=== PATIENT | male | born 1960 | race Caucasian/White ===

== ENCOUNTER → 2016-08-12 | Outpatient (CLI) | payer OTHER ==
[~2016-08-12] MED LIST: ASPI81TA28 PO; ATOR-24 PO; CHOL2000 PO; CLC/300 PO; CYAN500T13 PO; GLC500 PO; LEVO75TA PO; METF-384 PO; PIOG1TAB20 PO
[2016-08-13 07:11] LABS: ESTIMATED AVERAGE GLUCOSE 131 mg/dl; HA1C FLAG Normal (Normal)
== END | disposition home or self-care (01) ==
LOC: C.LAB1850 12:49
PROVIDERS: ATTEND Internal Medicine Endocrinology, Diabetes & Metabolism
DX: E03.9 Hypothyroidism, unspecified (principal); E11.9 Type 2 diabetes mellitus without complications

== ENCOUNTER 2016-09-14 22:36 | Inpatient (IN) | payer OTHER ==
[~2016-09-14] VITALS: Ht 172.7 cm; Wt 73.5 kg
[~2016-09-14 22:36] MED LIST changes: -ASPI81TA28 PO; -CHOL2000 PO; -CLC/300 PO; -CYAN500T13 PO; -GLC500 PO; -PIOG1TAB20 PO
[2016-09-14] MEDS ORDERED: SODIUM CHLORIDE 0.9% 1000ML 2,000 ML IV STA (22:57)
[2016-09-14] MEDS ORDERED: ACETAMINOPHEN 500 MG TAB PO STA (23:01)
--- NOTE | 2016-09-14 23:03 | EMERGENCY ROOM VISIT NOTE ---
History Report prepared by Aaron: Glenda Acosta Under the Supervision of: Dr. Yusef Oropeza M.D. First contact with patient: 22:46 Chief Complaint: SKIN PROBLEM Stated Complaint: SKIN INFECTION,BLISTERS/RASH ON LEFT SIDE History of Present Illness The patient is a 56 year old male who presents to the Emergency Room with complaints of a rash on the left side of his chest that began 4 nights ago. The patient reports that he was outside 4 nights ago trimming hedges, and before he went to bed he noticed a red dot that looked like an insect bite. The following morning he noticed that the bite was still there. He went for a 10 mile bike ride, and afterwards checked his blood pressure, which he states was low. Starting two days ago, the bite began to swell. The patient reports that he has also been light headed, febrile, and tachycardic. He reports that the rash continually spread on the left side of his body. The patient reports that he was placed on Doxycycline yesterday. He denies having a headache. Source of History: patient Onset: 4 nights ago Position: chest (left) Quality: other (rash) Associated Symptoms: + fevers, No headache Note: additional symptoms: light-headed and tachycardic Review of Systems See HPI for pertinent positives & negatives. A total of 10 systems reviewed and were otherwise negative. Past Medical & Surgical Medical Problems: (1) Cellulitis of left abdominal wall (2) Diabetes (3) SIRS (systemic inflammatory response syndrome) Family History Diabetes mellitus FHx: cancer FHx: heart disease Social History Smoking Status: Never Smoker Alcohol Use: occasionally Marital Status: Current/Historical Medications Scheduled Aspirin (Aspirin Ec), 81 MG PO DAILY Atorvastatin (Lipitor), 40 MG PO DAILY Cholecalciferol (Vitamin D3), 1 CAP PO DAILY Cyanocobalamin (Vitamin B12 500MCG), 500 MCG PO DAILY Levothyroxine Sodium (Synthroid), 75 MCG PO DAILY Metformin HCl (Metformin HCl), 2,000 MG PO DAILY Pioglitazone Hcl (Pioglitazone Hcl), 45 MG PO DAILY Allergies Coded Allergies: No Known Allergies (Unverified , 09/14/16) Physical Exam Vital Signs Date Time Temp Pulse Resp B/P (MAP) Pulse Ox O2 Delivery O2 Flow Rate FiO2 09/14/16 22:38 38.8 121 18 129/72 95 Room Air Physical Exam GENERAL: Patient is tired appearing and in mild distress. HEENT: No acute trauma, normocephalic atraumatic, mucous membranes moist, no nasal congestion, no scleral icterus. NECK: No stridor, no adenopathy, no meningismus, trachea is midline. LUNGS: No dyspnea. Clear to auscultation and equal bilaterally. No wheeze, no rhonchi. HEART: Regular rate and rhythm. No murmurs, rubs, gallops appreciated. ABDOMEN: Soft, nontender, bowel sounds positive, no masses appreciated, no peritonitis. BACK: No midline tenderness, no CVA tenderness EXTREMITIES: Normal motion all extremities, no cyanosis, no edema. NEUROLOGIC: Alert and oriented, no acute motor or sensory deficits, no focal weakness, cranial nerves grossly intact. SKIN: Large erythematous area of the left chest with central skin breakdown. TTP and warm over the area. Small areas of cellulitis over left back. No blisters. Medical Decision & Procedures Laboratory Results 09/14/16 23:05 Red Blood Count 4.43, Mean Corpuscular Volume 88.3, Mean Corpuscular Hemoglobin 29.6, Mean Corpuscular Hemoglobin Concent 33.5, Mean Platelet Volume 9.5, Neutrophils (%) (Auto) 71.0, Lymphocytes (%) (Auto) 15.4, Monocytes (%) (Auto) 12.6, Eosinophils (%) (Auto) 0.3, Basophils (%) (Auto) 0.6, Neutrophils # (Auto ) 4.82, Lymphocytes # (Auto) 1.05, Monocytes # (Auto) 0.86, Eosinophils # (Auto ) 0.02, Basophils # (Auto) 0.04 09/14/16 23:05 Test 09/14/16 23:05 09/14/16 23:17 White Blood Count 6.80 K/uL (4.8-10.8) Red Blood Count 4.43 M/uL (4.7-6.1) Hemoglobin 13.1 g/dL (14.0-18.0) Hematocrit 39.1 % (42-52) Mean Corpuscular Volume 88.3 fL (80-100) Mean Corpuscular Hemoglobin 29.6 pg (25-34) Mean Corpuscular Hemoglobin Concent 33.5 g/dl (32-36) Platelet Count 228 K/uL (130-400) Mean Platelet Volume 9.5 fL (7.4-10.4) Neutrophils (%) (Auto) 71.0 % Lymphocytes (%) (Auto) 15.4 % Monocytes (%) (Auto) 12.6 % Eosinophils (%) (Auto) 0.3 % Basophils (%) (Auto) 0.6 % Neutrophils # (Auto) 4.82 K/uL (1.4-6.5) Lymphocytes # (Auto) 1.05 K/uL (1.2-3.4) Monocytes # (Auto) 0.86 K/uL (0.11-0.59) Eosinophils # (Auto) 0.02 K/uL (0-0.5) Basophils # (Auto) 0.04 K/uL (0-0.2) RDW Standard Deviation 43.8 fL (36.4-46.3) RDW Coefficient of Variation 13.4 % (11.5-14.5) Immature Granulocyte % (Auto) 0.1 % Immature Granulocyte # (Auto) 0.01 K/uL (0.00-0.02) Anion Gap 9.0 mmol/L (3-11) Est Creatinine Clear Calc Drug Dose 70.8 ml/min Estimated GFR () 85.3 Estimated GFR (Non- 73.6 BUN/Creatinine Ratio 12.7 (10-20) Calcium Level 8.6 mg/dl (8.5-10.1) Total Creatine Kinase 522 U/L (39-308) C-Reactive Protein 2.08 mg/dl (0-0.29) Lyme Disease IgG Antibody NEG (NEG) Lyme Disease IgM Antibody NEG (NEG) Bedside Lactic Acid Venous 2.01 mmol/L (0.90-1.70) Laboratory results as reviewed by me. Medications Administered Medications (Trade) Dose Ordered Sig/Won Route Start Time Stop Time Status Last Admin Dose Admin Sodium Chloride 2,000 ml @ 999 mls/hr Q2H1M STAT IV 09/14/16 22:57 09/15/16 00:57 DC 09/14/16 23:36 999 MLS/HR Acetaminophen (Tylenol Tab) 1,000 mg NOW STAT PO 09/14/16 23:01 09/14/16 23:02 DC 09/14/16 23:35 1,000 MG Ceftriaxone Sodium (Rocephin Inj) 1 gm NOW STAT IV 09/14/16 23:38 09/14/16 23:39 DC 09/15/16 00:47 1 GM Vancomycin HCl 1800 mg/Sodium Chloride 536 ml @ 200 mls/hr ONE STAT IV 09/14/16 23:38 09/15/16 02:18 DC 09/15/16 01:20 200 MLS/HR ED Course 2250: The patient was evaluated in room C8. A complete history and physical exam was performed. 2257: Ordered Sodium Chloride 2,000 ml @ 999 mls/hr IV. 2301: Ordered Tylenol Tab 1,000 mg PO. 2338: Ordered Vancomycin HCl 1,800 mg/Sodium Chloride 536 ml @ 200 mls/hr IV, Rocephin Inj 1 gm IV. 0037: Dr. Mazariegos is at bedside. I reviewed with nursing the need to start antibiotics. 0050: Upon reevaluation, the patient is resting. Discussed results and treatment plan with the patient. He verbalized understanding and agreement with the treatment plan. The patient will be evaluated for further management. Medical Decision Differentials include: sepsis, cellulitis, and electrolyte imbalance amongst others. Blood Pressure Screening: Patient was found to have a slightly elevated blood pressure due to circumstances. I do not believe that the patient requires hypertension monitoring. Medication Reconciliation: I attest that I have personally reviewed the patient 's current medication list. 56 yr old male arrives early sepsis with left chest cellulitis. Empiric Rocephin/Vanco given for skin infection. Saline bolus as well. Lactic acid just mildly elevated though could be somewhat due to being on metformin. I feel he requires inpatient treatment for his early sepsis which hospitalist agrees with. Patient not in septic shock. Consults Time Called: 34 Consulting Physician: Dr. Mazariegos- Internal Medicine Returned Call: 36 Discussed the patient's case. The patient will be evaluated for further treatment and disposition. Impression Primary Impression: Sepsis Additional Impression: Cellulitis of chest wall Scribe Attestation The scribe's documentation has been prepared under my direction and personally reviewed by me in its entirety. I confirm that the note above accurately reflects all work, treatment, procedures, and medical decision making performed by me. Departure Information Dispostion Being Evaluated By Hospitalist Referrals Herbert Lu M.D. (PCP) Patient Instructions My [facility] Problem Qualifiers
[2016-09-14] MEDS ORDERED: PIOG1TAB20 PO (23:19)
[2016-09-14] MEDS ORDERED: GLC500 PO (23:19)
[2016-09-14] MEDS ORDERED: CYAN500T13 PO (23:20)
[2016-09-14] MEDS ORDERED: ASPI81TA28 PO (23:20)
[2016-09-14] MEDS ORDERED: CHOL2000 PO (23:20)
[2016-09-14 23:38] LABS: BASO % 0.6 %; BASO ABS # 0.04 K/uL (0-0.2); COMPLETE YES; EOS % 0.3 %; HEMATOCRIT 39.1 % (42-52); IG% 0.1 %; LYMPH % 15.4 %; LYMPH ABS # 1.05 K/uL (1.2-3.4); MEAN CELL VOLUME 88.3 fL (80-100); MEAN CORPUSCULAR HEMOGLOBIN 29.6 pg (25-34); MEAN CORPUSCULAR HGB CONC 33.5 g/dl (32-36); MEAN PLATELET VOLUME 9.5 fL (7.4-10.4); MONO % 12.6 %; PLATELET COUNT 228 K/uL (130-400); RED BLOOD COUNT 4.43 M/uL (4.7-6.1)
[2016-09-14] MEDS ORDERED: CEFTRIAXONE SOD INJ 1 GM ADDVIAL IV STA (23:38)
[2016-09-14] MEDS ORDERED: VANCOMYCIN INJ 1,800 MG in SODIUM CHLORIDE 0.9% 500ML 500 ML IV STA (23:38)
[2016-09-14 23:54] LABS: BUN/CREATININE RATIO 12.7 (10-20); CALCIUM 8.6 mg/dl (8.5-10.1); CREATININE 1.1 mg/dl (0.60-1.40); POTASSIUM 3.9 mmol/L (3.5-5.1)
[2016-09-14 23:58] LABS: C-REACTIVE PROTEIN 2.08 mg/dl (0-0.29)
[2016-09-15 00:22] LABS: LYME DISEASE AB IGG NEG (NEG); LYME DISEASE AB IGM NEG (NEG)
[2016-09-15] MEDS ORDERED: ZOLPIDEM TARTRATE 5 MG TAB PO PRN (00:45)
[2016-09-15] MEDS ORDERED: ACETAMINOPHEN 325 MG TAB PO PRN (00:45)
[2016-09-15] MEDS ORDERED: VANCOMYCIN INJ 1,000 MG in SODIUM CHLORIDE 0.9% 250ML 250 ML IV STA (00:46)
[2016-09-15] MEDS ORDERED: GLUCAGON FOR INJ 1 MG VIAL SQ PRN (01:00)
[2016-09-15] MEDS ORDERED: GLUCOSE 10 TABS/TUBE PO PRN (01:00)
[2016-09-15] MEDS ORDERED: GLUCOSE 40% GEL 15 GM TUBE PO PRN (01:00)
[2016-09-15] MEDS ORDERED: ONDANSETRON INJ 2 MG/ML 2 ML VIAL IV PRN (01:00)
[2016-09-15] MEDS ORDERED: DEXTROSE 50% 50 ML SYR IV PRN (01:00)
[2016-09-15 01:33] VITALS: O2SAT 94
[2016-09-15 02:00] VITALS: BP 135/70; TEMP 37.5; Ht 172.7 cm; Wt 73.5 kg
[2016-09-15] MEDS ORDERED: NSS + 20MEQ KCL 1000ML 1,000 ML IV SCH (02:30)
[2016-09-15] MEDS ORDERED: VANCOMYCIN CONSULT ACTIVE PRN (02:45)
--- NOTE | 2016-09-15 03:43 | History and Physical ---
History & Physical Date & Time of Service: Sep 15, 2016 at 03:33. The patient was examined on 09/14/2016. Chief Complaint: Cellulitis Of Lt Abd Wall,Sirs Primary Care Physician: Herbert Lu M.D. History of Present Illness Source: patient The patient is a 56-year-old male who presents emergency department with a rash on the left side of his chest that initially began 4 days ago as a red dot which is thought was an insect bite occurring after trimming hedges, which over the next days became larger, more red, painful and swollen. He went to an urgent care yesterday and was placed on doxycycline, and was then seen at a new PCP appointment by Dr. Lu earlier in the day today. Additional symptoms that began 2 nights ago and then progressed yesterday was that of lightheadedness, and in the afternoon today after he developed a temperature and worsening fatigue, he decided to present to the emergency department for assessment. Family History Diabetes mellitus FHx: cancer FHx: heart disease Social History Smoking Status: Never Smoker Smokeless Tobacco Use: No Alcohol Use: none Drug Use: none Marital Status: Housing status: lives with family Multi-Drug Resistant Organisms History of MDRO: No Allergies Coded Allergies: No Known Allergies (Unverified , 09/14/16) Home Medications Scheduled Aspirin (Aspirin Ec), 81 MG PO DAILY Atorvastatin (Lipitor), 40 MG PO DAILY Cholecalciferol (Vitamin D3), 1 CAP PO DAILY Cyanocobalamin (Vitamin B12 500MCG), 500 MCG PO DAILY Levothyroxine Sodium (Synthroid), 75 MCG PO DAILY Metformin HCl (Metformin HCl), 2,000 MG PO DAILY Pioglitazone Hcl (Pioglitazone Hcl), 45 MG PO DAILY Review of Systems The patient denies chest pain, palpitations, shortness of breath, cough, lower extremity swelling, sore throat, chills, sweats, weight change, nausea, vomiting , abdominal pain, pelvic pain, blood in urine or stool, dysuria, urinary frequency or urgency, headache, memory loss, abnormal bruising or bleeding, imbalance, focal or generalized weakness, numbness or tingling in arms or legs, back or neck pain, night sweats. The review of systems is otherwise negative other than for that already noted above, and at least 10 systems have been reviewed. Physical Exam Vital Signs Date Time Temp Pulse Resp B/P (MAP) Pulse Ox O2 Delivery O2 Flow Rate FiO2 09/15/16 01:33 82 18 135/70 94 Room Air 09/15/16 01:08 37.5 09/14/16 22:38 38.8 121 18 129/72 95 Room Air The patient is awake, well-developed and adequately nourished, alert and oriented 3, normocephalic and atraumatic, looks fatigued, lying in bed and in no acute distress. HEENT--PERRL, EOMI, mucous membranes and oropharynx dry. Neck--supple, no JVD or bruits, thyroid normal, trachea midline, no adenopathy. Heart--normal S1 and S2, no extra beats, no murmurs, rubs or gallops. Lungs--clear bilaterally with good air movement, no respiratory distress, no accessory muscle use. Abdomen--normal bowel sounds and soft, nontender and nondistended, no hernias or masses, no organomegaly. Extremities--no cyanosis, clubbing or edema. There are good distal pulses b/l. Dermatologic--left upper chest wall toward the axilla with area of erythema and induration, tender to palpation, with small I&D area laterally by the ED. Neurologic--cranial nerves II through XII grossly intact, motor and sensory examination normal. Rheumatologic--normal range of motion. Psychiatric--normal affect. Diagnostics Laboratory Results Results Past 24 Hours Test 09/14/16 23:05 09/14/16 23:17 Range/Units White Blood Count 6.80 4.8-10.8 K/uL Red Blood Count 4.43 4.7-6.1 M/uL Hemoglobin 13.1 14.0-18.0 g/dL Hematocrit 39.1 42-52 % Mean Corpuscular Volume 88.3 80-100 fL Mean Corpuscular Hemoglobin 29.6 25-34 pg Mean Corpuscular Hemoglobin Concent 33.5 32-36 g/dl Platelet Count 228 130-400 K/uL Mean Platelet Volume 9.5 7.4-10.4 fL Neutrophils (%) (Auto) 71.0 % Lymphocytes (%) (Auto) 15.4 % Monocytes (%) (Auto) 12.6 % Eosinophils (%) (Auto) 0.3 % Basophils (%) (Auto) 0.6 % Neutrophils # (Auto) 4.82 1.4-6.5 K/uL Lymphocytes # (Auto) 1.05 1.2-3.4 K/uL Monocytes # (Auto) 0.86 0.11-0.59 K/uL Eosinophils # (Auto) 0.02 0-0.5 K/uL Basophils # (Auto) 0.04 0-0.2 K/uL RDW Standard Deviation 43.8 36.4-46.3 fL RDW Coefficient of Variation 13.4 11.5-14.5 % Immature Granulocyte % (Auto) 0.1 % Immature Granulocyte # (Auto) 0.01 0.00-0.02 K/uL Sodium Level 135 136-145 mmol/L Potassium Level 3.9 3.5-5.1 mmol/L Chloride Level 100 98-107 mmol/L Carbon Dioxide Level 26 21-32 mmol/L Anion Gap 9.0 3-11 mmol/L Blood Urea Nitrogen 14 7-18 mg/dl Creatinine 1.10 0.60-1.40 mg/dl Est Creatinine Clear Calc Drug Dose 70.8 ml/min Estimated GFR () 85.3 Estimated GFR (Non- 73.6 BUN/Creatinine Ratio 12.7 10-20 Random Glucose 169 70-99 mg/dl Calcium Level 8.6 8.5-10.1 mg/dl Total Creatine Kinase 522 39-308 U/L C-Reactive Protein 2.08 0-0.29 mg/dl Lyme Disease IgG Antibody NEG NEG Lyme Disease IgM Antibody NEG NEG Bedside Lactic Acid Venous 2.01 0.90-1.70 mmol/L Microbiology Results 09/14/16 Blood Culture, Received Pending 09/14/16 Blood Culture, Received Pending 09/14/16 Gram Stain, Received Pending 09/14/16 Wound Culture, Received Pending Impression Assessment and Plan Cellulitis of left chest wall--question is whether this began as some type of bite. He has had negative Lyme testing, which is still a possibility, and will add ehrlichiosis testing today. We'll add vancomycin IV per renal dosing, and continue the ceftriaxone begun in the ED. We'll place on NSS with KCl 20 mEq at 100 mils per hour. He has already received 2 liters of normal saline in the ED. Continue to follow clinical examination. Diabetes mellitus--hold metformin 2000 mg by mouth daily and pioglitazone 45 mg by mouth daily. Continue aspirin 81 mg by mouth daily. Place on Accu-Cheks before meals and at bedtime with NovoLog coverage. Hyperlipidemia--continue atorvastatin 40 mg by mouth daily. Hypothyroidism--continue levothyroxine sodium 75 g by mouth daily. Vitamin B12 deficiency--continue cyanocobalamin 500 g by mouth daily. Level of Care Med/Surg Advanced Directives Existing Advance Directive: No Existing Living Will: No Existing Power of Cafe Assistant: No Resuscitation Status FULL RESUSCITATION VTE Prophylaxis VTE Risk Assessment Done? Y/N: Yes Risk Level: Moderate Given or contraindicated: SCD's Social Service Consult None Apply
[2016-09-15] MEDS ORDERED: LEVOTHYROXINE 75 MCG TAB PO SCH (06:30)
[2016-09-15] MEDS: INSULIN ASPART 100 UNITS/ML 3 ML PEN SC SCH ×2 (06:30→11:00)
[2016-09-15] MEDS ORDERED: CYANOCOBALAMIN 500 MCG TAB (VIT B-12) PO SCH (08:00)
[2016-09-15] MEDS ORDERED: ASPIRIN 81 MG ECTAB PO SCH (08:00)
[2016-09-15] MEDS ORDERED: PNEUMOCOCCAL POLYSACCHARIDES 25 MCG/0.5 ML VIAL/SYR IM. ONE (08:00)
[2016-09-15] MEDS ORDERED: CHOLECALCIFEROL 1000 INTER.UNIT TAB PO SCH (08:00)
[2016-09-15] MEDS ORDERED: ATORVASTATIN 40 MG TAB PO SCH (08:00)
[2016-09-15] MEDS ORDERED: PNEUMOCOCCAL ADMINISTRATION CHARGE ONE (08:00)
[2016-09-15 08:02] VITALS: BP 112/72; PULSE 64; TEMP 36.5; O2SAT 91
--- NOTE | 2016-09-15 10:26 | Hospitalist Progress Note ---
Hospitalist Progress Note Date of Service Sep 15, 2016. (Cassandra Jurado PA-C) Subjective Pt evaluation today including: conversation w/ patient, physical exam, chart review, lab review, review of studies Pain: None PO Intake: Good Voiding: no voiding problems The patient was seen and examined this morning. Pt reports doing well, without any acute complaints. His wound is dry and seems to be getting smaller, the redness around the wound is shrinking. He denies any lightheadedness, fever, chills or sweats. He feels well and has been ambulating about the halls without difficulty, dressed in street clothes. Constitutional: No fever, No chills, No sweats, No fatigue Eyes: No redness, No diplopia ENT: No nasal symptoms, No sore throat Respiratory: No cough, No shortness of breath, No dyspnea on exertion Cardiovascular: No chest pain, No palpitations Abdomen: No pain, No nausea, No vomiting, No diarrhea, No constipation Musculoskeletal: No joint pain, No muscle pain, No swelling Endo: No fatigue Skin: + problem reported (redness on left chest wall improving) (Cassandra Jurado PA-C) Objective Vital Signs Date Time Temp Pulse Resp B/P (MAP) Pulse Ox O2 Delivery O2 Flow Rate FiO2 09/15/16 08:02 36.5 64 19 112/72 (85) 91 Room Air 09/15/16 02:00 37.5 18 135/70 Room Air 09/15/16 01:33 82 18 135/70 94 Room Air 09/15/16 01:08 37.5 09/14/16 22:38 38.8 121 18 129/72 95 Room Air (Cassandra Jurado PA-C) Physical Exam General Appearance: WD/WN, no apparent distress Eyes: PERRL, EOMI ENT: hearing grossly normal, pharynx normal Neck: supple, no JVD Respiratory/Chest: chest non-tender, lungs clear, no respiratory distress, no accessory muscle use, + pertinent finding (Left chest wall with erythema, the area size is reducing, wound is ~1cm with non-nectrotic center, dry. Nontender to touch.) Cardiovascular: regular rate, rhythm, no murmur Abdomen: normal bowel sounds, non tender, soft, no organomegaly Extremities: non-tender, no pedal edema, no calf tenderness Neurologic/Psychiatric: no motor/sensory deficits, alert, oriented x 3 Skin: normal color, warm/dry (Cassandra Jurado PA-C) Laboratory Results Last 24 Hours Test 09/14/16 23:05 09/14/16 23:17 09/15/16 08:19 White Blood Count 6.80 K/uL Red Blood Count 4.43 M/uL Hemoglobin 13.1 g/dL Hematocrit 39.1 % Mean Corpuscular Volume 88.3 fL Mean Corpuscular Hemoglobin 29.6 pg Mean Corpuscular Hemoglobin Concent 33.5 g/dl Platelet Count 228 K/uL Mean Platelet Volume 9.5 fL Neutrophils (%) (Auto) 71.0 % Lymphocytes (%) (Auto) 15.4 % Monocytes (%) (Auto) 12.6 % Eosinophils (%) (Auto) 0.3 % Basophils (%) (Auto) 0.6 % Neutrophils # (Auto) 4.82 K/uL Lymphocytes # (Auto) 1.05 K/uL Monocytes # (Auto) 0.86 K/uL Eosinophils # (Auto) 0.02 K/uL Basophils # (Auto) 0.04 K/uL RDW Standard Deviation 43.8 fL RDW Coefficient of Variation 13.4 % Immature Granulocyte % (Auto) 0.1 % Immature Granulocyte # (Auto) 0.01 K/uL Sodium Level 135 mmol/L Potassium Level 3.9 mmol/L Chloride Level 100 mmol/L Carbon Dioxide Level 26 mmol/L Anion Gap 9.0 mmol/L Blood Urea Nitrogen 14 mg/dl Creatinine 1.10 mg/dl Est Creatinine Clear Calc Drug Dose 70.8 ml/min Estimated GFR () 85.3 Estimated GFR (Non- 73.6 BUN/Creatinine Ratio 12.7 Random Glucose 169 mg/dl Calcium Level 8.6 mg/dl Total Creatine Kinase 522 U/L C-Reactive Protein 2.08 mg/dl Lyme Disease IgG Antibody NEG Lyme Disease IgM Antibody NEG Bedside Lactic Acid Venous 2.01 mmol/L Bedside Glucose 88 mg/dl (Cassandra Jurado PA-C) Assessment and Plan Cellulitis of left chest wall--question is whether this began as some type of bite. - Negative Lyme testing, which is still a possibility, follow ehrlichiosis titre - Cont vancomycin IV w/ renal dosing, and continue the ceftriaxone - day 2- can likely transition to PO meds today with reducing erythema and improved appearance of the wound. No leukocytosis, afebrile. Diabetes mellitus - hold metformin 2000 mg by mouth daily and pioglitazone 45 mg by mouth daily. - Place on Accu-Cheks before meals and at bedtime with NovoLog coverage. Hyperlipidemia - continue atorvastatin 40 mg by mouth daily. - continue aspirin 81 mg by mouth daily. Hypothyroidism -continue levothyroxine 75 g daily. Vitamin B12 deficiency -continue cyanocobalamin 500 g by mouth daily. DVT ppx: CODE STATUS: Full code Disposition: From home, likely discharge within 24 hours. (Cassandra Jurado, EVA)
--- NOTE | 2016-09-15 11:38 | Discharge Instructions ---
Discharge Instructions Date of Service Sep 15, 2016. Admission Reason for Admission: Cellulitis Of Lt Abd Wall,Sirs Discharge Discharge Diagnosis / Problem: Left chest wall cellulitis Discharge Goals Goal(s): Decrease discomfort, Improve function Activity Recommendations Activity Limitations: resume your previous activity Lifting Limitations: none Exercise/Sports Limitations: none May Resume Sexual Activity: when tolerated Shower/Bathe: no limitations Driving or Machine Use: no limitations . Instructions / Follow-Up Instructions / Follow-Up You were admitted to [facility] with left chest wall wound and lightheadedness and diagnosed with Left chest wall cellulitis secondary to insect bite. - During your stay here you were treated with intravenous antibiotics ( vancomycin and ceftriaxone) and intravenous fluids. - Lymes titre was completed and negative. - The redness and appearance of the wound improved. You should continue to let it uncovered. Do not use bactroban ointment on it. - Continue taking oral antibiotics as prescribed - No imaging studies were performed. Follow up with your Primary Care Provider within 1 week: you already have an appointment with Dr. Lu on Friday. - Follow up with pending results for Ehrlichiosis titres. - Please discuss need for Lymes recheck, your initial results are negative. Current Hospital Diet Patient's current hospital diet: AHA Diet (Heart Healthy), Diabetes Type 2 Diet Discharge Diet Recommended Diet: AHA Diet (Heart Healthy), Diabetes Type 2 Diet Pending Studies Studies pending at discharge: yes List of pending studies: Ehrlichiosis titres Laboratory Results Last 24 Hours Test 09/14/16 23:05 09/14/16 23:17 09/15/16 08:19 White Blood Count 6.80 K/uL Red Blood Count 4.43 M/uL Hemoglobin 13.1 g/dL Hematocrit 39.1 % Mean Corpuscular Volume 88.3 fL Mean Corpuscular Hemoglobin 29.6 pg Mean Corpuscular Hemoglobin Concent 33.5 g/dl Platelet Count 228 K/uL Mean Platelet Volume 9.5 fL Neutrophils (%) (Auto) 71.0 % Lymphocytes (%) (Auto) 15.4 % Monocytes (%) (Auto) 12.6 % Eosinophils (%) (Auto) 0.3 % Basophils (%) (Auto) 0.6 % Neutrophils # (Auto) 4.82 K/uL Lymphocytes # (Auto) 1.05 K/uL Monocytes # (Auto) 0.86 K/uL Eosinophils # (Auto) 0.02 K/uL Basophils # (Auto) 0.04 K/uL RDW Standard Deviation 43.8 fL RDW Coefficient of Variation 13.4 % Immature Granulocyte % (Auto) 0.1 % Immature Granulocyte # (Auto) 0.01 K/uL Sodium Level 135 mmol/L Potassium Level 3.9 mmol/L Chloride Level 100 mmol/L Carbon Dioxide Level 26 mmol/L Anion Gap 9.0 mmol/L Blood Urea Nitrogen 14 mg/dl Creatinine 1.10 mg/dl Est Creatinine Clear Calc Drug Dose 70.8 ml/min Estimated GFR () 85.3 Estimated GFR (Non- 73.6 BUN/Creatinine Ratio 12.7 Random Glucose 169 mg/dl Calcium Level 8.6 mg/dl Total Creatine Kinase 522 U/L C-Reactive Protein 2.08 mg/dl Lyme Disease IgG Antibody NEG Lyme Disease IgM Antibody NEG Bedside Lactic Acid Venous 2.01 mmol/L Bedside Glucose 88 mg/dl Hemoglobin A1c Test 08/12/16 13:10 Range/Units Estimated Average Glucose 131 mg/dl Hemoglobin A1c 6.2 H 4.5-5.6 % Medical Emergencies . Who to Call and When: Medical Emergencies: If at any time you feel your situation is an emergency, please call 911 immediately. . Non-Emergent Contact Non-Emergency issues call your: Primary Care Provider - Contact your family physician if you have worsening pain, redness increases, the wound begins to drain, you develop a fever, sweats or chills, or if you have any other concerns. . "Provider Documentation" section prepared by Sri Jurado. . VTE Core Measure Inpt VTE Proph given/why not?: SCD's
[2016-09-15] MEDS ORDERED: CLC/300 PO (12:18)
--- NOTE | 2016-09-15 12:29 | Discharge Summary ---
Discharge Summary Date of Service Sep 15, 2016. (Cassandra Jurado PA-C) Discharge Summary Admission Date: Sep 15, 2016 at 00:49 Discharge Date: Sep 15, 2016 Discharge Disposition: Home Principal Diagnosis: Left chest wall cellulitis Problems/Secondary Diagnoses: DM II, hyperlipidemia, hypothyroidism, Vit B deficiency Procedures: None Consultations: None (Cassandra Jurado PA-C) Medication Reconciliation New Medications: Clindamycin HCl (Clindamycin HCl) 300 Mg Cap 1 CAP PO TID for 10 Days, #30 CAP Continued Medications: Aspirin (Aspirin Ec) 81 Mg Tab 81 MG PO DAILY Atorvastatin (Lipitor) 40 Mg Tab 40 MG PO DAILY, TAB Cholecalciferol (Vitamin D3) 2,000 Unit Cap 1 CAP PO DAILY for 90 Days, #90 CAP 3 Refills Cyanocobalamin (Vitamin B12 500MCG) 500 Mcg Tab 500 MCG PO DAILY, TAB Levothyroxine Sodium (Synthroid) 75 Mcg Tab 75 MCG PO DAILY, TAB Metformin HCl (Metformin HCl) 500 Mg Tab 2000 MG PO DAILY spread 500mg dose out among meals over the days course until reaching 2000 mg daily Pioglitazone Hcl (Pioglitazone Hcl) 45 Mg Tab 45 MG PO DAILY Discharge Exam Subjective Pt evaluation today including: conversation w/ patient, physical exam, chart review, lab review, review of studies Pain: None PO Intake: Good Voiding: no voiding problems The patient was seen and examined this morning. Pt reports doing well, without any acute complaints. His wound is dry and seems to be getting smaller, the redness around the wound is shrinking. He denies any lightheadedness, fever, chills or sweats. He feels well and has been ambulating about the halls without difficulty, dressed in street clothes. Constitutional: No fever, No chills, No sweats, No fatigue Eyes: No redness, No diplopia ENT: No nasal symptoms, No sore throat Respiratory: No cough, No shortness of breath, No dyspnea on exertion Cardiovascular: No chest pain, No palpitations Abdomen: No pain, No nausea, No vomiting, No diarrhea, No constipation Musculoskeletal: No joint pain, No muscle pain, No swelling Endo: No fatigue Skin: + problem reported (redness on left chest wall improving) Objective Vital Signs Date Time Temp Pulse Resp B/P (MAP) Pulse Ox O2 Delivery O2 Flow Rate FiO2 09/15/16 08:02 36.5 64 19 112/72 (85) 91 Room Air 09/15/16 02:00 37.5 18 135/70 Room Air 09/15/16 01:33 82 18 135/70 94 Room Air 09/15/16 01:08 37.5 09/14/16 22:38 38.8 121 18 129/72 95 Room Air Physical Exam General Appearance: WD/WN, no apparent distress Eyes: PERRL, EOMI ENT: hearing grossly normal, pharynx normal Neck: supple, no JVD Respiratory/Chest: chest non-tender, lungs clear, no respiratory distress, no accessory muscle use, + pertinent finding (Left chest wall with erythema, the area size is reducing, wound is ~1cm with non-nectrotic center, dry. Nontender to touch.) Cardiovascular: regular rate, rhythm, no murmur Abdomen: normal bowel sounds, non tender, soft, no organomegaly Extremities: non-tender, no pedal edema, no calf tenderness Neurologic/Psychiatric: no motor/sensory deficits, alert, oriented x 3 Skin: normal color, warm/dry (Cassandra Jurado, EVA) Hospital Course H&P per Shai Mazariegos MD. History of Present Illness Source: patient The patient is a 56-year-old male who presents emergency department with a rash on the left side of his chest that initially began 4 days ago as a red dot which is thought was an insect bite occurring after trimming hedges, which over the next days became larger, more red, painful and swollen. He went to an urgent care yesterday and was placed on doxycycline, and was then seen at a new PCP appointment by Dr. Lu earlier in the day today. Additional symptoms that began 2 nights ago and then progressed yesterday was that of lightheadedness, and in the afternoon today after he developed a temperature and worsening fatigue, he decided to present to the emergency department for assessment. Physical Exam Vital Signs Date Time Temp Pulse Resp B/P (MAP) Pulse Ox O2 Delivery O2 Flow Rate FiO2 09/15/16 01:33 82 18 135/70 94 Room Air 09/15/16 01:08 37.5 09/14/16 22:38 38.8 121 18 129/72 95 Room Air The patient is awake, well-developed and adequately nourished, alert and oriented 3, normocephalic and atraumatic, looks fatigued, lying in bed and in no acute distress. HEENT--PERRL, EOMI, mucous membranes and oropharynx dry. Neck--supple, no JVD or bruits, thyroid normal, trachea midline, no adenopathy. Heart--normal S1 and S2, no extra beats, no murmurs, rubs or gallops. Lungs--clear bilaterally with good air movement, no respiratory distress, no accessory muscle use. Abdomen--normal bowel sounds and soft, nontender and nondistended, no hernias or masses, no organomegaly. Extremities--no cyanosis, clubbing or edema. There are good distal pulses b/l. Dermatologic--left upper chest wall toward the axilla with area of erythema and induration, tender to palpation, with small I&D area laterally by the ED. Neurologic--cranial nerves II through XII grossly intact, motor and sensory examination normal. Rheumatologic--normal range of motion. Psychiatric--normal affect. Hospital Course: Cellulitis of left chest wall--question is whether this began as some type of bite. - Negative Lyme testing, which is still a possibility, follow ehrlichiosis titre with PCP - Received 1 day of vancomycin IV w/ renal dosing, and ceftriaxone - will transition to PO meds today with reducing erythema and improved appearance of the wound. Will give Clindamycin 300 mg TID x 10 days. - No leukocytosis, afebrile. Diabetes mellitus - hold metformin 2000 mg by mouth daily and pioglitazone 45 mg by mouth daily. - Place on Accu-Cheks before meals and at bedtime with NovoLog coverage. Hyperlipidemia - continue atorvastatin 40 mg by mouth daily. - continue aspirin 81 mg by mouth daily. Hypothyroidism -continue levothyroxine 75 g daily. Vitamin B12 deficiency -continue cyanocobalamin 500 g by mouth daily. DVT ppx: teds, oob CODE STATUS: Full code Disposition: From home, discharge today Total Time Spent: Greater than 30 minutes This includes examination of the patient, discharge planning, medication reconciliation, and communication with other providers. (Cassandra Jurado, EVA) FEROZ Physician Supervision Note: I interviewed and examined the patient. Discussed with Cassandra Jurado PAC and agree with findings and plan as documented in the note. Any exceptions or clarifications are listed here: None This pt is doing much better with erythema and swelling receeding, lyme negative vitals stable wound with ulceration in center, surrounded by some small bullae and then surrounding erythema will send home with clinda po, has outpt follow up 09/16 Documented By: Berry Conway (Berry Conway M.D.) Discharge Instructions Please refer to the electronic Patient Visit Report (Discharge Instructions) for additional information. (Cassandra Jurado PA-C) Follow-Up Follow up with your Primary Care Provider within 1 week. (Cassandra Jurado PA-C) Additional Copies To Herbert Lu M.D.
[2016-09-15] MEDS ORDERED: VANCOMYCIN INJ 1,000 MG in SODIUM CHLORIDE 0.9% 250ML 250 ML IV SCH (13:00)
[2016-09-15 13:10] VITALS: BP 112/72; PULSE 64; TEMP 36.5; O2SAT 91
[2016-09-16] MEDS ORDERED: CEFTRIAXONE SOD INJ 1 GM in DEXTROSE 5% ADD-VANTAGE 50ML 50 ML IV SCH (01:00)
[2016-09-16] MEDS ORDERED: VANCOMYCIN TROUGH SCH (12:30)
[2016-09-19 18:59] LABS: EHRLICHIA CHAFF IGG AB <1:64 (<1:64); EHRLICHIA CHAFF IGM AB <1:20 (<1:20)
== END 2016-09-15 14:00 | disposition home or self-care (01) | DRG 603 ==
LOC: C.EDB 22:37 → C.MS4W 09-15 00:49 → ENRESERV 09-15 01:19
PROVIDERS: ADMIT Hospitalist; ATTEND Hospitalist
DX: L03.313 Cellulitis of chest wall (principal); E11.9 Type 2 diabetes mellitus without complications; E78.5 Hyperlipidemia, unspecified; E03.9 Hypothyroidism, unspecified; E53.9 Vitamin B deficiency, unspecified; Z83.3 Family history of diabetes mellitus

== ENCOUNTER 2016-10-01 09:32 | Emergency (ER) | payer OTHER ==
[~2016-10-01] VITALS: Ht 170.2 cm; Wt 72.9 kg
[~2016-10-01 09:32] MED LIST changes: +ASPI81TA28 PO; +CHOL2000 PO; +CYAN500T13 PO; +GLC500 PO; -METF-384 PO; +PIOG1TAB20 PO
[2016-10-01 09:38] VITALS: TEMP 36.7; Ht 170.2 cm; Wt 72.9 kg
[2016-10-01] MEDS ORDERED: ALUMINUM/MAGNESIUM SUSP 30 ML UDC PO STA (10:27)
--- NOTE | 2016-10-01 10:27 | EMERGENCY ROOM VISIT NOTE ---
History Report prepared by Aaron: Gemma Anderson Under the Supervision of: Bubba PetersonO. First contact with patient: 10:04 Chief Complaint: ABDOMINAL PAIN Stated Complaint: STOMACH PAIN History of Present Illness The patient is a 56 year old male who presents to the Emergency Room with complaints of constant diffuse abdominal pain for the past 5 hours. He was feeling fine throughout the day yesterday and went to bed normally. He woke up early this morning around 4:30/5:00 with generalized abdominal discomfort. He states that lying flat exacerbated his pain, while sitting up or standing and walking around help to alleviate it. He rates his current pain as a 5/10 in severity. He has not eaten anything today. He denies any personal history of a stomach ulcer, but is concerned for an ulcer. The patient denies fevers, chills , nausea, vomiting, diarrhea, constipation, melena, hematochezia, urinary symptoms, recent travel, recent changes to his diet, and any recent changes to his medications. He denies any personal or family history of GI disease. He denies any previous abdominal surgeries. He has had a colonoscopy within the past 10 years. The patient is diabetic and states that his BSG has been normal. He was here two weeks ago for left-sided abdominal cellulitis. He was placed on clindamycin at that time. He took the medication as prescribed and finished his last dose two days ago. He states that his cellulitis has improved. Denies any GI related ADR's while on the antibiotic. Source of History: patient Onset: 5 hours [employer] WORK[employer] Position: abdomen (diffuse) Symptom Intensity: 5/10 Timing: constant Modifying Factors (Worsening): other (lying flat) Modifying Factors (Relieving): other (sitting up or standing and walking) Associated Symptoms: No fevers, No chills, No nausea, No vomiting, No melena , No hematochezia, No diarrhea, No urinary symptoms Review of Systems See HPI for pertinent positives & negatives. A total of 10 systems reviewed and were otherwise negative. Past Medical & Surgical Medical Problems: (1) Cellulitis of left abdominal wall (2) Diabetes (3) SIRS (systemic inflammatory response syndrome) Family History Diabetes mellitus FHx: cancer FHx: heart disease Social History Smoking Status: Never Smoker Alcohol Use: occasionally Drug Use: none Marital Status: Current/Historical Medications Scheduled Aspirin (Aspirin Ec), 81 MG PO DAILY Atorvastatin (Lipitor), 40 MG PO DAILY Cholecalciferol (Vitamin D3), 1 CAP PO DAILY Cyanocobalamin (Vitamin B12 500MCG), 500 MCG PO DAILY Levothyroxine Sodium (Synthroid), 75 MCG PO DAILY Metformin HCl (Metformin HCl), 2,000 MG PO DAILY Pioglitazone Hcl (Pioglitazone Hcl), 45 MG PO DAILY Allergies Coded Allergies: No Known Allergies (Unverified , 10/01/16) Physical Exam Vital Signs Date Time Temp Pulse Resp B/P (MAP) Pulse Ox O2 Delivery O2 Flow Rate FiO2 10/01/16 12:43 68 16 136/76 97 10/01/16 11:39 67 18 156/88 97 Room Air 10/01/16 09:38 36.7 74 16 147/85 97 Room Air Physical Exam GENERAL: alert, well appearing, well nourished, no distress, non-toxic EYE EXAM: normal conjunctiva, PERRL and EOM's grossly intact OROPHARYNX: no exudate, no erythema, lips, buccal mucosa, and tongue normal and mucous membranes are moist NECK: supple, no nuchal rigidity, no adenopathy, non-tender LUNGS: Clear to auscultation. Normal chest wall mechanics, no w/r/r HEART: no murmurs, S1 normal and S2 normal, chest wall with no residual evidence of cellulitis ABDOMEN: abdomen soft, non-tender, normo-active bowel sounds, no pulsatile masses, no rebound or guarding, no organomegaly. BACK: Back is symmetrical on inspection and there is no deformity, no midline tenderness, no CVA tenderness. SKIN: no rashes and no bruising UPPER EXTREMITIES: upper extremities are grossly normal. LOWER EXTREMITIES: No pitting edema. NEURO EXAM: Normal sensorium, cranial nerves II-XII grossly intact, normal speech, no gross weakness of arms, no gross weakness of legs. Medical Decision & Procedures ER Provider Diagnostic Interpretation: Radiology results have been interpreted by the radiologist and reviewed by me. PA CHEST ABDOMINAL SERIES CLINICAL HISTORY: Generalized abdominal pain. FINDINGS: A PA chest radiograph is obtained. No prior studies are available for comparison at the time of dictation. The cardiomediastinal silhouette is unremarkable. The lungs and pleural spaces are clear. No pneumothorax is seen. The bony thorax is grossly intact. Supine and erect abdominal radiographs are obtained. No prior studies are available for comparison at the time of dictation. There is a nonobstructed abdominal bowel gas pattern. Moderate colonic fecal retention is observed. No intraperitoneal free air is seen. There are no abnormal abdominal calcifications. The lumbosacral spine and bony pelvis appear intact. IMPRESSION: 1. No active disease in the chest. 2. Nonobstructed abdominal bowel gas pattern noting moderate colonic fecal retention. Electronically signed by: Juan C Almaguer M.D. 10/01/2016 11:19 AM Dictated Date/Time: 10/01/2016 11:15 AM Laboratory Results 10/01/16 09:55 Red Blood Count 4.79, Mean Corpuscular Volume 90.2, Mean Corpuscular Hemoglobin 29.0, Mean Corpuscular Hemoglobin Concent 32.2, Mean Platelet Volume 9.7, Neutrophils (%) (Auto) 77.5, Lymphocytes (%) (Auto) 15.4, Monocytes (%) (Auto) 5.5, Eosinophils (%) (Auto) 0.7, Basophils (%) (Auto) 0.8, Neutrophils # (Auto) 5.59, Lymphocytes # (Auto) 1.11, Monocytes # (Auto) 0.40, Eosinophils # (Auto) 0.05, Basophils # (Auto) 0.06 10/01/16 09:55 Test 10/01/16 09:55 10/01/16 10:35 White Blood Count 7.22 K/uL (4.8-10.8) Red Blood Count 4.79 M/uL (4.7-6.1) Hemoglobin 13.9 g/dL (14.0-18.0) Hematocrit 43.2 % (42-52) Mean Corpuscular Volume 90.2 fL (80-100) Mean Corpuscular Hemoglobin 29.0 pg (25-34) Mean Corpuscular Hemoglobin Concent 32.2 g/dl (32-36) Platelet Count 373 K/uL (130-400) Mean Platelet Volume 9.7 fL (7.4-10.4) Neutrophils (%) (Auto) 77.5 % Lymphocytes (%) (Auto) 15.4 % Monocytes (%) (Auto) 5.5 % Eosinophils (%) (Auto) 0.7 % Basophils (%) (Auto) 0.8 % Neutrophils # (Auto) 5.59 K/uL (1.4-6.5) Lymphocytes # (Auto) 1.11 K/uL (1.2-3.4) Monocytes # (Auto) 0.40 K/uL (0.11-0.59) Eosinophils # (Auto) 0.05 K/uL (0-0.5) Basophils # (Auto) 0.06 K/uL (0-0.2) RDW Standard Deviation 46.7 fL (36.4-46.3) RDW Coefficient of Variation 14.2 % (11.5-14.5) Immature Granulocyte % (Auto) 0.1 % Immature Granulocyte # (Auto) 0.01 K/uL (0.00-0.02) Anion Gap 6.0 mmol/L (3-11) Est Creatinine Clear Calc Drug Dose 78.4 ml/min Estimated GFR () 100.6 Estimated GFR (Non- 86.8 BUN/Creatinine Ratio 18.1 (10-20) Calcium Level 9.7 mg/dl (8.5-10.1) Total Bilirubin 0.4 mg/dl (0.2-1) Aspartate Amino Transf (AST/SGOT) 30 U/L (15-37) Alanine Aminotransferase (ALT/SGPT) 30 U/L (12-78) Alkaline Phosphatase 53 U/L (45-117) Troponin I < 0.015 ng/ml (0-0.045) Total Protein 7.2 gm/dl (6.4-8.2) Albumin 3.7 gm/dl (3.4-5.0) Globulin 3.5 gm/dl (2.5-4.0) Albumin/Globulin Ratio 1.1 (0.9-2) Lipase 142 U/L (73-393) Thyroid Stimulating Hormone (TSH) 1.050 uIu/ml (0.300-4.500) Lactic Acid Level 1.7 mmol/L (0.4-2.0) Laboratory results per my review. Medications Administered Medications (Trade) Dose Ordered Sig/Won Route Start Time Stop Time Status Last Admin Dose Admin Al Hydroxide/Mg Hydroxide (Maalox Susp) 30 ml NOW STAT PO 10/01/16 10:27 10/01/16 10:28 DC 10/01/16 10:54 30 ML Pantoprazole Sodium 40 mg/ Syringe 10 ml @ 5 mls/min NOW ONCE IV 10/01/16 10:30 10/01/16 10:31 DC 10/01/16 10:54 5 MLS/MIN ECG Indication: abdominal pain Rate (beats per minute): 61 Rhythm: normal sinus Findings: no acute ischemic change, no ectopy, other (normal axis, normal intervals) Comparison ECG Date: no prior available ED Course 1004: The patient was evaluated in room B5. A complete history and physical exam was performed. 1027: Maalox 30ml PO 1030: Pantoprazole Sodium 10 ml @ 5 mls/hr IV 1155: I updated the patient. He is doing a PO challenge. He has been able to lay flat without any recurrence of his pain or nausea. 1226: The patient successfully completed his PO challenge. I discussed the results and treatment plan with the patient. I answered all pertaining questions that he had. He expressed understanding and verbalized agreement. The patient will be discharged home. Medical Decision Differential diagnoses includes but is not limited to gastritis, peptic ulcer disease, GERD, gallbladder disease, pancreatitis, small bowel obstruction, acute coronary syndrome, pericarditis, ischemic bowel, irritable bowel disease, irritable bowel syndrome, appendicitis, diverticulitis, malignancy, hernia, urinary tract infection, torsion, perforation, trauma, infectious. Medication Reconciliation: I attest that I have personally reviewed the patient' s current medication list. Blood pressure screening: Patient was found to have an elevated blood pressure and was referred to their primary doctor for recheck and further treatment. Pt well appearing here, abd soft/NT/ND. Labs reassuring, xrays reassuring. No fevers. Tolerating po well. Sx completely resolved with meds here, suggesting possible etiology/component of gastritis/GERD. Discussed with pt possible ddx. Discussed f/u with PCP. Did not feel presentation warranted emergent Gi intervention or additional imaging. Discussed sx to watch/return for. Possible need for GI evaluation, but felt could be done as an outpt at this time. Pt aware of all results and agreeable with plan. Pt reliable, and reasonable to f/u or return for any worsening symptoms. Doubt colitis, mesenteric ischemia, perf, gi bleed, sbo, diverticulitis, appy, hernia, aaa, dissection, pancreatitis, acs, pe, pneumonia. Impression Primary Impression: Abdominal pain Additional Impression: Constipation Scribe Attestation The scribe's documentation has been prepared under my direction and personally reviewed by me in its entirety. I confirm that the note above accurately reflects all work, treatment, procedures, and medical decision making performed by me. Departure Information Dispostion Home / Self-Care Referrals Herbert Lu M.D. (PCP) Forms Call Back Authorization, HOME CARE DOCUMENTATION FORM, IMPORTANT VISIT INFORMATION Patient Instructions [facility] Additional Instructions Please call and follow up with your family doctor. Please continue regular medications as prescribed. Please avoid any acidic foods which may contribute to stomach irritation. Please consider starting an [id number] stomach medication for acid such as Prilosec or Pepcid. If you develop any recurrent or worsening pain, develop fevers, vomiting, noticed black or bloody stools, develop chest pain, trouble breathing, or have any other new concerns, please return the emergency room. Problem Qualifiers Primary Impression: Abdominal pain Abdominal location: generalized Qualified Codes: R10.84 - Generalized abdominal pain Additional Impression: Constipation Constipation type: unspecified constipation type Qualified Codes: K59.00 - Constipation, unspecified
[2016-10-01] MEDS ORDERED: PANTOprazole INJ 40 MG in SYRINGE 0 ML IV ONE (10:30)
[2016-10-01 10:44] LABS: BASO % 0.8 %; BASO ABS # 0.06 K/uL (0-0.2); COMPLETE YES; EOS % 0.7 %; HEMATOCRIT 43.2 % (42-52); IG% 0.1 %; LYMPH % 15.4 %; LYMPH ABS # 1.11 K/uL (1.2-3.4); MEAN CELL VOLUME 90.2 fL (80-100); MEAN CORPUSCULAR HGB CONC 32.2 g/dl (32-36); MEAN PLATELET VOLUME 9.7 fL (7.4-10.4); MONO % 5.5 %; NEUT % 77.5 %; PLATELET COUNT 373 K/uL (130-400); RED BLOOD COUNT 4.79 M/uL (4.7-6.1); WHITE BLOOD COUNT 7.22 K/uL (4.8-10.8)
[2016-10-01 10:53] LABS: ALT/SGPT 30 U/L (12-78); AST/SGOT 30 U/L (15-37); BLOOD UREA NITROGEN 17 mg/dl (7-18); BUN/CREATININE RATIO 18.1 (10-20); CALCIUM 9.7 mg/dl (8.5-10.1); CARBON DIOXIDE 29 mmol/L (21-32); CHLORIDE 105 mmol/L (98-107); CREATININE 0.96 mg/dl (0.60-1.40); GLUCOSE 116 mg/dl (70-99); POTASSIUM 4.3 mmol/L (3.5-5.1); SODIUM 140 mmol/L (136-145)
[2016-10-01 11:04] LABS: ALB/GLOB RATIO 1.1 (0.9-2); ALKALINE PHOSPHATASE 53 U/L (45-117)
--- NOTE | 2016-10-01 11:20 | DIAGNOSTIC IMAGING REPORT ---
PA CHEST ABDOMINAL SERIES CLINICAL HISTORY: Generalized abdominal pain. FINDINGS: A PA chest radiograph is obtained. No prior studies are available for comparison at the time of dictation. The cardiomediastinal silhouette is unremarkable. The lungs and pleural spaces are clear. No pneumothorax is seen. The bony thorax is grossly intact. Supine and erect abdominal radiographs are obtained. No prior studies are available for comparison at the time of dictation. There is a nonobstructed abdominal bowel gas pattern. Moderate colonic fecal retention is observed. No intraperitoneal free air is seen. There are no abnormal abdominal calcifications. The lumbosacral spine and bony pelvis appear intact. IMPRESSION: 1. No active disease in the chest. 2. Nonobstructed abdominal bowel gas pattern noting moderate colonic fecal retention. Electronically signed by: Juan C Almaguer M.D. 10/01/2016 11:19 AM Dictated Date/Time: 10/01/2016 11:15 AM
[2016-10-01 12:43] VITALS: BP 136/76; PULSE 68; O2SAT 97
== END 2016-10-01 12:46 | disposition home or self-care (01) ==
LOC: EDUNIT# 09:32 → C.EDB 09:33
DX: R10.84 Generalized abdominal pain (principal); K59.00 Constipation, unspecified; E11.9 Type 2 diabetes mellitus without complications; Z86.19 Personal history of other infectious and parasitic diseases; Z79.82 Long term (current) use of aspirin; Z79.84 Long term (current) use of oral hypoglycemic drugs; Z79.899 Other long term (current) drug therapy

== ENCOUNTER → 2017-04-25 | Outpatient (CLI) | payer OTHER ==
[2017-04-25 11:20] LABS: ALBUMIN 3.5 gm/dl (3.4-5.0); ALT/SGPT 36 U/L (12-78); AST/SGOT 25 U/L (15-37); BLOOD UREA NITROGEN 15 mg/dl (7-18); CALCIUM 8.8 mg/dl (8.5-10.1); CARBON DIOXIDE 32 mmol/L (21-32); CREATININE 1.01 mg/dl (0.60-1.40); GLUCOSE 95 mg/dl (70-99); POTASSIUM 4.4 mmol/L (3.5-5.1); SODIUM 138 mmol/L (136-145)
[2017-04-25 11:22] LABS: HEMOGLOBIN A1C 6.1 % (4.5-5.6)
[2017-04-25 11:30] LABS: ALKALINE PHOSPHATASE 50 U/L (45-117); CHOLESTEROL 158 mg/dl (0-200); LDL CHOLESTEROL CALCULATED 91 mg/dl; TOTAL PROTEIN 7.1 gm/dl (6.4-8.2)
== END | disposition home or self-care (01) ==
LOC: C.LAB1850 09:09
PROVIDERS: ATTEND Internal Medicine
DX: E03.9 Hypothyroidism, unspecified (principal); E78.5 Hyperlipidemia, unspecified; E06.3 Autoimmune thyroiditis; E55.9 Vitamin D deficiency, unspecified; E11.9 Type 2 diabetes mellitus without complications; R03.0 Elevated blood-pressure reading, without diagnosis of hypertension

== ENCOUNTER → 2017-11-13 | Outpatient (CLI) | payer OTHER ==
[2017-11-14 06:33] LABS: HEMOGLOBIN A1C 6.1 % (4.5-5.6)
== END | disposition home or self-care (01) ==
LOC: C.LAB1850 14:00
PROVIDERS: ATTEND Internal Medicine Endocrinology, Diabetes & Metabolism
DX: E11.9 Type 2 diabetes mellitus without complications (principal)

== ENCOUNTER 2020-09-07 05:50 | Observation (INO) ==
--- NOTE | 2020-08-21 15:20 | PAT Medication Instructions ---
Medication Instructions Date of Service August 21, 2020 Home Medications Medication Instructions Recorded metformin 500 mg tablet,extended 500 mg PO .COMPLEX #360 tab 06/04/19 release 24 hr aspirin [Aspirin Low Dose] 81 mg PO PM cyanocobalamin (vitamin B-12) [Vitamin B-12] 500 mcg PO QAM metformin 500 mg tablet,extended release 24 hr 500 mg PO .COMPLEX atorvastatin 40 mg PO PM cholecalciferol (vitamin D3) [Vitamin D3] 25 mcg PO BID ferrous gluconate 324 mg PO QAM levothyroxine [Synthroid] 75 mcg PO QAM pioglitazone [Actos] 45 mg PO PM ASK your prescriber and surgeon aspirin [Aspirin Low Dose] 81 mg PO PM DO NOT take the morning of surgery cyanocobalamin (vitamin B-12) [Vitamin B-12] 500 mcg PO QAM metformin 500 mg tablet,extended release 24 hr 500 mg PO .COMPLEX cholecalciferol (vitamin D3) [Vitamin D3] 25 mcg PO BID ferrous gluconate 324 mg PO QAM Take morning of surgery With a small sip of water, OTHERWISE NOTHING TO EAT OR DRINK AFTER MIDNIGHT: levothyroxine [Synthroid] 75 mcg PO QAM Take evening before surgery metformin 500 mg tablet,extended release 24 hr 500 mg PO .COMPLEX atorvastatin 40 mg PO PM cholecalciferol (vitamin D3) [Vitamin D3] 25 mcg PO BID pioglitazone [Actos] 45 mg PO PM Other Notes If you have any questions please call us at [phone] or [phone] or [phone] or [phone]
--- NOTE | 2020-08-23 09:19 | Anesthesiology Consultation ---
Date of Service August 23, 2020 Assessment & Plan (1) Encounter for pre-operative examination: - COVID screening: Per assessment on 08/23: Travel screen negative, no known COVID-19 positive contacts or current COVID-19 related symptoms. Surgeon arranging preop COVID testing (scheduled 09/05). Awaiting results. - Check BSG AM DOS Chart Review Chart Review: Acceptable Risk for Surgery and Patient seen in Pre Admission Testing Teaching & Discussion Pre-Anesthesia Teaching/Discussion Notes: Instructed NPO after midnight before surgery,except medications with 15 cc of water. Medication instructions provided according to the PAT guidelines. History Surgery Operation Date: 09/07/20 10:00 Proposed Procedures p Laparoscopic Robotic Assisted Radical Retropubic Prostatectomy Possible Open, Possible Pelvic Lymph Node Disetion, Possible Suprapubic Tube Placement - Tyrell Ahuja, DO Height/Weight Height: 5 ft 7 in Weight: 76.4 kg Allergies Allergy/AdvReac Type Severity Reaction Status Date / Time No Known Drug Allergies Allergy Verified 08/21/20 14:26 Medications Home Medications Medication Instructions Recorded Confirmed Last Taken aspirin [Aspirin Low Dose] 81 mg PO PM 08/18/18 08/21/20 Unknown cyanocobalamin (vitamin B-12) 500 mcg PO QAM 08/18/18 08/21/20 Unknown [Vitamin B-12] metformin 500 mg tablet,extended 500 mg PO .COMPLEX #360 tab 06/04/19 08/21/20 Unknown release 24 hr atorvastatin 40 mg PO PM 08/21/20 08/21/20 Unknown cholecalciferol (vitamin D3) 25 mcg PO BID 08/21/20 08/21/20 Unknown [Vitamin D3] ferrous gluconate 324 mg PO QAM 08/21/20 08/21/20 Unknown levothyroxine [Synthroid] 75 mcg PO QAM 08/21/20 08/21/20 Unknown pioglitazone [Actos] 45 mg PO PM 08/21/20 08/21/20 Unknown Past Medical History Medical History Anemia, mild No known hx of blood transfusion Diabetes mellitus NIDDM Dyslipidemia Cris's thyroiditis Hematuria Hypothyroidism Male erectile disorder of organic origin Prostate cancer no radiation/chemo at this time Skin cancer s/p Moh's procedure Exercise / Class Metabolic Activity II 4-5 Yardwork/Stairs/Walk up hill (one flight of stairs (no chest pain, no sob)) Past Family History Family History Mother Skin cancer Stroke Grandfather (Maternal) Diabetes Cancer Pt doesn't know type Grandfather (Paternal) Myocardial infarction Heart disease Father , early 80s Alzheimer disease Melanoma Brother No problems noted. Sister No problems noted. Son No problems noted. Son No problems noted. Denies family history of Ovarian cancer Prostate cancer Breast cancer Colorectal cancer Past Surgical History Surgical History H/O colonoscopy History of cystoscopy 05/17/20 (in office) History of surgery Left clavicle surgery History of tooth extraction Past Anesthesia History No Hx of Anesthesia Complications and No Family Hx of Anesthesia Complications History of PONV No Hx of PONV and No Hx of Motion Sickness Social History Smoking Status: Never smoker Do You Dip or Chew Tobacco: No Hx Alcohol Use: No Hx Substance Use: No Review of Systems Patient denies chest pain, shortness of breath, dyspnea on exertion, fever, chills, cough, wheezing, palpitations. Physical Exam Vital Signs VITALS BP 122/70 P 70 TEMP 98.5 SP02 94%RA RESP 16 PHYSICAL Full cervical extension range of motion. Full TMJ range of motion. TMD 3 finger breaths Mallampati Score 2 Dentition: intact, upper front left cap Lungs: clear throughout to auscultation Cardiac: regular rate and rhythm, no murmurs noted Spine: normal Carotid arteries: negative bruit Extremities: no edema Trimmed silverman Lab Results Anesthesia Preop Results Results Anesthesia Widget: WBC 4.04 K/uL (4.8-10.8) L 08/23/20 Hgb 13.9 g/dL (14.0-18.0) L 08/23/20 Hct 42.9 % (42-52) 08/23/20 Plt 309 K/uL (130-400) 08/23/20 Na 140 mmol/L (136-145) 08/23/20 K 4.2 mmol/L (3.5-5.1) 08/23/20 Cl 107 mmol/L (98-107) 08/23/20 CO2 28 mmol/L (21-32) 08/23/20 BUN 13 mg/dl (7-18) 08/23/20 Creat 0.87 mg/dl (0.6-1.4) 08/23/20 Glucose Level 121 mg/dl (70-99) H 08/23/20 Urine Appearance Clear 08/18/20 Blood Type A Positive 08/23/20 Antibody Screen NEGATIVE 08/23/20 Lab Comments: Testing Laboratory Results 04/25/20 HGBA1C 6.3% Electrocardiogram Date: 08/23/20 Findings: + NSR @ (71) Chest X-Ray Date: 08/23/20 FINDINGS: The cardiac and mediastinal contours remain stable. There is no failure. There is no focal pulmonary consolidation. There are no pleural effusions. There is an old internally fixated left clavicular fracture. IMPRESSI ON: No active disease in the chest.
[2020-09-07] MEDS ORDERED: HEPARIN SOD 5,000 UNIT/0.5 ML VIAL SQ SCH (06:00)
[2020-09-07] MEDS ORDERED: LACTATED RINGER'S 1,000 ML IV SCH (06:00)
[2020-09-07] MEDS ORDERED: LR 15ML/HR IV SCH (06:00)
[2020-09-07] MEDS ORDERED: ceFAZolin 2000MG 2,000 MG/15 ML SYR IV SCH (06:00)
[2020-09-07] MEDS ORDERED: ONDANSETRON INJ 2 MG/ML 2 ML VIAL ONE (06:52)
[2020-09-07] MEDS ORDERED: GLYCOPYRROLATE 0.2 MG/ML VIAL ONE (06:52)
[2020-09-07] MEDS ORDERED: DEXAMETHASONE SOD INJ 4 MG/ML VIAL ONE (06:52)
[2020-09-07] MEDS ORDERED: PROPOFOL IV EMULSION 10 MG/ML 20 ML VIAL IV ONE (06:52)
[2020-09-07] MEDS ORDERED: NEOSTIGMINE METHYLSULFATE 1 MG/ML 10ML VIAL ONE (06:52)
[2020-09-07] MEDS ORDERED: LIDOCAINE 2% 2 ML VIAL/AMP(20MG/ML) INFIL ONE (06:52)
[2020-09-07] MEDS ORDERED: MIDAZOLAM HCL 1 MG/ML 2ML VIAL ONE (06:52)
[2020-09-07] MEDS ORDERED: fentaNYL citrate 100 MCG/2 ML VIAL ONE ×2 (06:52→11:28)
[2020-09-07] MEDS ORDERED: BUPIVACAINE 0.5 % 5 MG/1 ML MPF 30ML VIAL ONE (06:55)
--- NOTE | 2020-09-07 07:18 | History & Physical Bridge Note ---
Date of Service September 07, 2020 History & Physical Bridge Note I have examined the patient, reviewed the History & Physical and in the interval since the performance of the History & Physical I have noted the following changes of clinical significance: no changes noted
[2020-09-07] MEDS ORDERED: LABETALOL HCL IV 5 MG/ML 20ML IV PRN (07:47)
[2020-09-07] MEDS ORDERED: PROMETHAZINE HCL 12.5 MG in SODIUM CHLORIDE 0.9% 50 ML IV PRN (07:47)
[2020-09-07] MEDS ORDERED: FLUMAZENIL 0.1 MG/1 ML 10 ML VIAL IV PRN (07:47)
[2020-09-07] MEDS ORDERED: fentaNYL citrate 100 MCG/2 ML VIAL IV PRN (07:47)
[2020-09-07] MEDS ORDERED: ONDANSETRON INJ 2 MG/ML 2 ML VIAL IV PRN ×2 (07:47→13:42)
[2020-09-07] MEDS ORDERED: ePHEDrine sulfate 50 MG/ML AMP IV PRN (07:47)
[2020-09-07] MEDS ORDERED: NALOXONE HCL 0.4 MG/1 ML VIAL/CARP IV PRN (07:47)
[2020-09-07] MEDS ORDERED: ATROPINE SULFATE 0.1 MG/ML 10ML SYR IV PRN (07:47)
[2020-09-07] MEDS ORDERED: ePHEDrine sulfate 50 MG/ML SYR ONE (09:23)
[2020-09-07] MEDS ORDERED: SURGICEL ABSORB HEMOSTAT 2IN X 14IN TOP ONE (09:43)
[2020-09-07] MEDS ORDERED: ROCURONIUM BROMIDE 10 MG/ML 5 ML VIAL IV ONE (10:03)
[2020-09-07] MEDS ORDERED: FLOSEAL HEMOSTATIC MATRIX 10ML TOP ONE (10:53)
--- NOTE | 2020-09-07 12:15 | Operative Report ---
PG Post Operative Report Pre & Post Diagnosis Operation Date: 09/07/20 07:30 Pre-Op Diagnosis: Prostate Cancer, Hematuria, Male Erectile Disorder Post-Op Diagnosis: Prostate Cancer, Hematuria, Male Erectile Disorder I identified the patient and participated in the time-out.: Yes Procedure Operation Date: 09/07/20 07:30 Actual Procedures p Laparoscopic Robotic Assisted Prostatectomy and Bilateral Pelvic Lymph Node Dissection(Not Applicable) - Tyrell Ahuja DO Surgeon Tyrell Ahuja, II, DO Table Games Floor Supervisor Inder NUNEZ Estimated Blood Loss 50 Findings Consistent with Post-Op Diagnosis Significant adhesion and irregularity posteriorly on the left. Specimens Prostate and Seminal Vesicle Left Vas deferens stump Tissue posterior to Prostate/Left Seminal vesicle Left Pelvic Lymph Nodes Right Pelvic Lymph Nodes. Drains 18 Silicon Zepeda catheter. 10 Fr Flat drain Anesthesia Type General Complications none Disposition Disposition: Recovery Room Indications Patient with Prostate Cancer. Risk and benefits were discussed at length. Patient elected to undergo robotic assisted laparoscopic Radical Prostatectomy. Description of Procedure The patient was brought to the operative suite and placed under general endotracheal intubation anesthesia in the supine position. The patient was transferred to the dorsal lithotomy position. At this point, the patient prepped and draped in the usual sterile fashion and a timeout was completed. Preoperative antibiotics of Ancef 2 grams had been given. FABIAN's and SCD's were placed on the patient's lower extremities. A catheter was placed using sterile technique. With the time out completed the patient was placed into Trendelenburg and the skin at the umbilicus was anesthetized. A small incision was made superior to the umbilicus. A Varess Needle was placed and confirmed to be in the abdominal cavity. Water drop test passed. The Abdominal cavity was insufflated to 15 mmHG. The camera port was then placed. A laparoscopic camera was placed into the port and the abdominal cavity inspected. No concerning features were noted. At this point, the skin was marked for port placement and 8mm working ports were placed. The skin was anesthetized down to fascia and an approx 1cm incision was made to place the 3 x 8mm ports. A 12mm and 5 mm financial planning assistant ports were also placed in similar fashion under direct visualization. The patient was transferred into steep Trendelenburg position and the legs lowered. The robot was positioned and docked. The camera was placed and all trocars were positioned under direct visualization. [employer]illard DIRECTOR OF CONTENT AND PROGRAMMING was integral in port placement, camera utilization, and docking procedure. She remained in sterile attire and then proceeded to assist the remainder of the case. At this point, I transitioned to the robotic console. At this point, the sigmoid colon was mobilized superiorly and the pelvis ass essed. Adhesions were freed to allow mobilization. The peritoneum in the midline was opened between rectum and bladder and the vas deferens and seminal vesicles exposed. These were dissected with blunt technique. The vas was clipped and cut and mobilized. Cautery was used to assist dissection avoiding the tissue posteriorly near the rectum. The tissues lateral to the seminal vesicles were clipped with a hemolock and all bleeding controlled. This was taken as inferior as possible from this position. The right sided dissection went without issue. The seminal vesicle and vas deferens on the left were significantly adhered to the surrounding tissues especially posteriorly and laterally. Significant inflammation was noted within the fat surrounding the tissue. Care was taken to dissect this area free. The medial umbilical ligaments were then identified and the peritoneum directly lateral on the right followed by the left was opened. The tissues were bluntly dissected to free the bladder's lateral attachments. This was taken down to the pubic bone and exposed the endopelvic fascia bilaterally. The medial ligaments were cut and the bladder dropped. The tissues was dissected anterior to the prostate. The endopelvic fascia on each side was then opened and the lateral edges of the prostate dissected. The Dorsal venous complex of the prostate was dissected and assessed. A 2-0 Vicryl suture was used to ligate the vessels with an additional 2-0 PDS used to further ligate the vessels and to act as a suspension stitch which was clipped with a Lapra-Ty to the pubic bone. Electrocautery was used to cut the anterior attachments, the puboprostatic ligaments, and venous tissues. The zepeda was manipulated to better visual the bladder neck and dissection was taken using electrocautery. The bladder neck was opened and dissected from the prostate. The UO were identifed and dissection taken in a direction to avoid each side. The vas stump and seminal vesicles were exposed and used to assist in traction to dissect. The right sided dissection once again was considerably easier. The prostatic pedicles were better exposed. The posterior prostate was dissected. An attempt was made to limit cautery and utilize cold dissection of the lateral posterior prostate to attempt preservation of the neurovascular bundle bilaterally. Hemolock clips were utilized to clip the prostatic pedicle bilaterally. The dissection was taken to the apex of the prostate. This was repeated on the left. The dissection of the posterior portion of the base was significantly adhered. Metal Clips were used to julian the surrounding inflammed fat and tissue. The Vas stump on the left had to be removed and then removed and sent for pathologic analysis to allow dissection. Additional fat tissue posterior to the prostate and seminal vesicle was also resected and sent separately. The anterior prostate was released and the urethra exposed. Cold cutting was used to open the anterior portion and expose the catheter. This was removed and the urethra incised. The prostate was further freed and grasped and removed from the field. The entire dissection bed was inspected .Hemostatic agent was placed in the region. No areas of injury or bleeding was noted. Care was taken to examine the perirectal tissues. A probe was placed and no injuries or other issues were observed. The bladder neck and urethra were then approximated with a running barbed suture starting at the 5 o'clock position and moving to the 12 o'clock on each side. This was tied at the anterior portion. A leak test was completed without any evidence of issues. The right and left pelvic lymph tissue was identified in relation to the iliac vessels. Distal dissection was taken to the Node of Matthews. Inferiorly the obturator vessels and nerve were identified. Lymphatic tissue within the surround fat tissue was dissected. This packet of tissues were sent for pathologic analysis and lymph node assessment. This was done for each separate side. Hemostatic agent was placed on the exposed vessels. The entire dissection space was inspected one final time. No bleeding or injuries or areas of concern were noted. No tumor or other concerning features were noted. At this point, the robot was undocked and moved away from the patient. The patient was taken out of Trendelenberg. The port sites were all assessed laparoscopically. The endoscopic bag was moved into the midline port. The 12mm port site was used to place a 10 Fr Flat drain. The other ports were assessed and no issues observed. The umbilical incision was opened further exposing fascia which was then opened in order to removed the prostate in the bag. The prostate was removed. A running PDS suture was used to close fascia. The skin at each site was closed with juju. The area was cleaned and bandages placed on each incision. The patient was cleaned and bandaged, aroused from anesthesia, and transferred to the pacu in stable condition having tolerated the procedure well with no complications. I was present and participated in all aspects of the procedure. Inder NUNEZ was critical in the portions as mentioned above. Will plan to observe postoperatively and monitor. Zepeda to be remain in place until followup. I attest to the content of the Intraoperative Record and any orders documented therein. Any exceptions are noted below.
[2020-09-07 12:54] LABS: Basophils # (auto) 0.02 K/uL (0-0.2); Basophils % (auto) 0.2 %; Hematocrit (blood only) 39.9 % (42-52); Immature Granulocytes # (auto) 0.01 K/uL (0.00-0.02); Immature Granulocytes % (auto) 0.1 %; Lymphocytes # (auto) 0.64 K/uL (1.2-3.4); Lymphocytes % (auto) 4.8 %; Mean Corpuscular Hemoglobin 30.1 pg (25-34); Mean Corpuscular Volume 92.4 fL (80-100); Mean Platelet Volume 9.1 fL (7.4-10.4); Monocytes # (auto) 0.26 K/uL (0.11-0.59); Neutrophils # (auto) 12.32 K/uL (1.4-6.5); Neutrophils % (auto) 92.9 %; Platelet Count 287 K/uL (130-400); RDW Standard Deviation 44.3 fL (36.4-46.3); Red Blood Count 4.32 M/uL (4.7-6.1); White Blood Count 13.25 K/uL (4.8-10.8)
--- NOTE | 2020-09-07 13:10 | Anesthesiology Progress Note ---
Date of Service September 07, 2020 Anesthesia Post Procedure Vital Signs Vital Signs: Temp Pulse Pulse Resp BP BP Pulse Ox 09/07/20 12:55 86 14 128/78 95 09/07/20 12:45 81 14 132/80 97 09/07/20 12:35 80 15 137/81 96 09/07/20 12:26 36.9 C 83 16 132/79 97 09/07/20 06:39 36.7 C 70 20 141/76 H 96 Transfer of Care Handoff Completed per policy Notes Mental Status: alert / awake / arousable Patient Amnestic to Procedure: Yes Nausea / Vomiting: adequately controlled Pain: adequately controlled Airway Patency, RR, SpO2: stable & adequate BP & HR: stable & adequate Hydration State: stable & adequate Anesthetic Complications: no major complications apparent
[2020-09-07 13:19] LABS: Mean Corpuscular Hgb Conc 32.6 g/dL (32-36)
[2020-09-07] MEDS: LACTATED RINGER'S 1,000 ML IV SCH ×2 (13:30→17:50)
[2020-09-07] MEDS ORDERED: ACETAMINOPHEN 325 MG TAB PO PRN (13:42)
[2020-09-07] MEDS ORDERED: MoRPHine SULFATE 2 MG/ML CARP IV PRN ×2 (13:42→13:52)
[2020-09-07] MEDS ORDERED: oxyCODONE HCL IR 5 MG TAB (IMMEDIATE RELEASE) PO PRN ×2 (13:42)
[2020-09-07] MEDS ORDERED: PHARMACY GLYCEMIC MGMT CONSULT PRN (13:42)
[2020-09-07 13:48] LABS: BUN Creatinine Ratio 14.4 (10-20); Calcium 8.2 mg/dl (8.5-10.1); Creatinine Clr Calc Pharmacy 83.3 ml/min; Est GFR (African American) 107.7 ml/min; Est GFR (Non-African American) 92.9 ml/min; Potassium 3.6 mmol/L (3.5-5.1)
[2020-09-07] MEDS ORDERED: DEXTROSE 50% 50 ML SYRINGE IV PRN (14:00)
[2020-09-07] MEDS ORDERED: NovoLIN-N (NPH) PER UNIT CHARGE SQ ONE (14:00)
[2020-09-07] MEDS ORDERED: CARBOHYDRATES FOR HYPOGLYCEMIA PO PRN (14:00)
[2020-09-07] MEDS ORDERED: GLUCOSE 10 TABS/TUBE PO PRN (14:00)
[2020-09-07] MEDS ORDERED: GLUCOSE 40% GEL 15 GM TUBE PO PRN (14:00)
[2020-09-07] MEDS ORDERED: GLUCAGON FOR INJ 1 MG VIAL IM PRN (14:00)
--- NOTE | 2020-09-07 14:04 | Pharmacy Report ---
Pharmacy Glycemic Short Note 2 - Date of Service September 07, 2020 - Glycemic Short BSG Results (Last 24 hours): 09/07/20 09/07/20 09/07/20 06:22 12:29 12:41 Glucose 171 H POC Glucose 84 154 H OUTPATIENT ANTIDIABETIC REGIMEN: * Metformin 500 mg PO BIDM (breakfast and dinner) and 1000 mg PO with lunch * Pioglitazone 45 mg PO daily * HbA1c: 6.3% (08/30/20) ASSESSMENT: * YANNI is a 60 year old male POD #0 s/p laparoscopic robotic assisted prostatectomy * Received 4 mg IV dexamethasone intraoperatively * Patient has T2DM that is well controlled with oral agents * Fasting BSG of 84 mg/dL this morning * Postoperative BSG of 154 mg/dL * Will give conservative NPH dose now to cover steroids in light of low A1c, low fasting BSG, and clear liquid diet PLAN FOR INPATIENT GLYCEMIC CONTROL: * Hold outpatient oral diabetes medications * Basal insulin * NPH 15 units (0.2 unit/kg) SC x 1 to cover IV dexamethasone * Bolus insulin * NovoLog per scale ACHS or Q6hrs while NPO * Goal Range: Low 110 mg/dL - High 140 mg/dL * Correction Factor: 25 mg/dL/unit * Nutritional / Prandial insulin per carb ratio of 1 unit per 8 grams CHO consumed * 0200 check tonight with same parameters PLAN FOR DISCHARGE: * HbA1c of 6.3% suggests excellent outpatient glycemic control * Provided patient is not experiencing hypoglycemia as an outpatient, continue current home regimen
[2020-09-07] MEDS: INSULIN ASPART 100 UNITS/ML 3 ML PEN SC SCH ×3 (15:19→21:28)
[2020-09-07] MEDS: ceFAZolin 2000MG 2,000 MG/15 ML SYR IV SCH ×2 (16:21→23:42)
[2020-09-07] MEDS ORDERED: ATORVASTATIN 40 MG TAB PO SCH (21:00)
[2020-09-07] MEDS: CHOLECALCIFEROL 1,000 UNITS 25 MCG TAB PO SCH (21:27)
[2020-09-07] MEDS: HEPARIN SOD 5,000 UNIT/0.5 ML VIAL SQ SCH (21:28)
[2020-09-08] MEDS ORDERED: INSULIN ASPART 100 UNITS/ML 3 ML PEN SC SCH (02:00)
[2020-09-08] MEDS: LACTATED RINGER'S 1,000 ML IV SCH (04:27)
[2020-09-08] MEDS ORDERED: LEVOTHYROXINE SODIUM 75 MCG TABLET PO SCH (06:30)
[2020-09-08 06:47] LABS: Basophils # (auto) 0.01 K/uL (0-0.2); Basophils % (auto) 0.1 %; Eosinophils # (auto) 0.01 K/uL (0-0.5); Eosinophils % (auto) 0.1 %; Hematocrit (blood only) 36.7 % (42-52); Hemoglobin 11.8 g/dL (14.0-18.0); Immature Granulocytes # (auto) 0.02 K/uL (0.00-0.02); Immature Granulocytes % (auto) 0.2 %; Lymphocytes # (auto) 1.47 K/uL (1.2-3.4); Lymphocytes % (auto) 15.4 %; Mean Corpuscular Hemoglobin 29.9 pg (25-34); Mean Corpuscular Hgb Conc 32.2 g/dL (32-36); Mean Corpuscular Volume 93.1 fL (80-100); Mean Platelet Volume 9.3 fL (7.4-10.4); Monocytes # (auto) 1.03 K/uL (0.11-0.59); Monocytes % (auto) 10.8 %; Neutrophils # (auto) 6.98 K/uL (1.4-6.5); Neutrophils % (auto) 73.4 %; Platelet Count 283 K/uL (130-400); RDW Coefficient of Variation 13.4 % (11.5-14.5); RDW Standard Deviation 45.9 fL (36.4-46.3); Red Blood Count 3.94 M/uL (4.7-6.1); White Blood Count 9.52 K/uL (4.8-10.8)
[2020-09-08 06:57] LABS: BUN Creatinine Ratio 10.3 (10-20); Creatinine Clr Calc Pharmacy 89.5 ml/min; Est GFR (Non-African American) 95.7 ml/min; Potassium 4.2 mmol/L (3.5-5.1)
--- NOTE | 2020-09-08 07:55 | Urology Progress Note ---
Date of Service September 08, 2020 Assessment & Plan (1) Prostate cancer: - Postop day #1 status post Laparoscopic Robotic Assisted Prostatectomy and Bilateral Pelvic Lymph Node Dissection with Dr. Ahuja - Patient doing well, progressing as expected - Afebrile, VSS. - Labs reviewed, Wbc and creatinine stable. Hemoglobin 11.8. - He reports minimal pain this morning. - Will advance diet as tolerated. - Maintain zepeda catheter. - Remove CHERYL drain. - Encourage ambulation and use of incentive spirometer. - Likely home later today if he continues to progress. - Will reassess this afternoon. - Pt reassessed this afternoon - Feeling well - Tolerating diet, no nausea or vomiting - Minimal pain - Zepeda catheter draining clear, yellow urine - Surgical dressings clean, dry, and intact - Expected clinical course reviewed with patient, all questions were answered - Will arrange appropriate postoperative follow-up - Stable for discharge, home with zepeda catheter Admission and Anticipated Discharge Date Admission Date: September 07, 2020 Subjective Patient examined at bedside this AM. Awake, resting in bed on arrival. He reports minimal pain this morning. Denies fevers or chills. No nausea or vomiting. Zepeda catheter intact, draining clear, yellow urine. CHERYL drain with serosanguineous drainage. No flatus. Ambulated yesterday without dizziness or lightheadedness Chart review: Afebrile, VSS. Wbc 9.52 Hgb 11.8 Cr 0.80 CHERYL output overnight - 40ml Zepeda output overnight - 725ml Review of Systems Constitutional: as per Subjective / HPI Gastrointestinal: as per Subjective / HPI Genitourinary: + as per Subjective / HPI Physical Exam Constitutional: well developed and well nourished; no acute distress Respiratory: normal respiratory effort and able to speak in complete sentences Cardiovascular: Extremities: no calf tenderness Gastrointestinal (Abdomen): Percussion/Palpation: abdomen soft; abdomen nontender and no guarding Incision sites appropriate. Dressing c/d/i Skin: Warm and dry Neurologic: awake Psychiatric: Orientation: alert, oriented x 3 and cooperative Genitourinary: Zepeda cather intact, draining clear yellow urine Results & Data ([facility]) Vital Signs (Past 12 Hours) Vital Signs Temp Pulse Resp BP BP Pulse Ox 09/08/20 07:47 36.9 C 69 18 110/72 93 09/08/20 02:21 36.9 C 77 18 110/69 94 09/07/20 21:02 37 C 93 H 19 107/66 94 PG Care Time/CCT Total # of Minutes Spent Total Time Spent with Patient: Total time spent is greater than 50% in coordination of care (as documented) at patient's floor/unit and/or counseling patient: Coding Level of Care Code None Diagnoses Prostate cancer C61
[2020-09-08] MEDS: HEPARIN SOD 5,000 UNIT/0.5 ML VIAL SQ SCH (08:23)
[2020-09-08] MEDS ORDERED: FERROUS GLUCONATE 324 MG TAB PO SCH (09:00)
[2020-09-08] MEDS ORDERED: CYANOCOBALAMIN 500 MCG TABLET (VITAMIN B-12) PO SCH (09:00)
[2020-09-08] MEDS: INSULIN ASPART 100 UNITS/ML 3 ML PEN SC SCH ×2 (09:35→13:32)
[2020-09-08] MEDS: CHOLECALCIFEROL 1,000 UNITS 25 MCG TAB PO SCH (09:35)
--- NOTE | 2020-09-11 13:14 | Discharge Summary ---
Date of Service September 11, 2020 Admission HPI Per Admitting Provider See H&P Admission Exam Per Admitting Provider See H&P Principal Diagnosis Prostate Cancer Discharge Exam General: Alert in no acute distress. HEENT: Normocephalic Atraumatic. Inspection normal. Psychologic: Normal affect. Skin: [place] and Dry. No rashes or visible lesions. Abdomen: Soft Non-distended. No rebound or guarding. Discharge Data Allergies Allergy/AdvReac Type Severity Reaction Status Date / Time No Known Allergies Allergy Verified 09/09/20 18:07 Procedures Performed Operation Date: 09/07/20 07:30 Actual Procedures p Laparoscopic Robotic Assisted Prostatectomy and Pelvic Lymph Node Dissection(Not Applicable) - Tyrell Ahuja, DO Hospital Course (1) Prostate cancer: - Postop day #1 status post Laparoscopic Robotic Assisted Prostatectomy and Bilateral Pelvic Lymph Node Dissection with Dr. Ahuja - Patient doing well, progressing as expected - Afebrile, VSS. - Labs reviewed, Wbc and creatinine stable. Hemoglobin 11.8. - He reports minimal pain this morning. - Will advance diet as tolerated. - Maintain zepeda catheter. - Remove CHERYL drain. - Encourage ambulation and use of incentive spirometer. - Likely home later today if he continues to progress. - Will reassess this afternoon. - Pt reassessed this afternoon - Feeling well - Tolerating diet, no nausea or vomiting - Minimal pain - Zepeda catheter draining clear, yellow urine - Surgical dressings clean, dry, and intact - Expected clinical course reviewed with patient, all questions were answered - Will arrange appropriate postoperative follow-up - Stable for discharge, home with zepeda catheter Total Time Total Time Spent Total Time Spent (In Minutes): 10 minutes Total Time Includes: Examination of the Patient, Discharge Planning, Medication Reconciliation and Communication With Other Providers Discharge Plan Discharge Items Patient Disposition: Home - Self-Care Reason For Visit: Prostate Cancer, Hematuria, Male Erectile Disorder Discharge Diagnosis: prostate cancer, hematuria, male erectile disorder Activity: Per Instructions section Lifting: No more than 25 pounds Bathing Comment: No tub baths or soaking, okay to shower tomorrow. Sexual Activity: Wait until after follow-up appointment Exercise/Sports: Wait until after follow-up appointment Driving/Machine Use: Do not drive while taking narcotic pain medication Non-emergency contact: Surgeon and Urologist Call non-emergency contact if: you have any medication questions, your pain is not controlled, your pain is concerning for you, your temperature is above 101, your wound has increased redness, your wound has increased drainage and your wound pain has increased Follow-up/Referrals: Renato Jerez MD [Primary Care Provider] - 09/15/20 10:30 am () Tyrell Ahuja DO [Physician] - 09/19/20 10:00 am Diet: Carb Consistent or DM2 Addtl Attending Provider Instructions: Please take all medications as prescribed and keep all follow-ups as scheduled. Please call our office at [phone] with any questions, concerns or need to reschedule appointments for any reason. We are happy to assist you. We will call you with your postoperative follow-up date and time. We have sent an antibiotic to your pharmacy of choice. Please begin antibiotic as prescribed the day BEFORE your scheduled voiding trial at [facility]. Please continue antibiotic every 12 hours through the day AFTER your voiding trial. Activity: We recommend having someone with you for the first few days after surgery to help care for you. For the first 2 weeks after surgery, we would like you to get up and walk around your house. However, we recommend limit physical activity that would increase your heart rate. This will allow your body to rest and heal. Take naps if you feel tired. Don't lift anything heavier than 10 pounds, mow the law or ride a bicycle until your follow-up appointment. Please avoid long car rides. Home Care: Unless directed otherwise, drink 6 to 8 glasses of water a day (enough to keep your urine light colored). This will also help keep a healthy flow of urine. We recommend using a stool softener for the first two weeks to avoid constipation. Zepeda Catheter or Suprapubic Catheter care: Keep the catheter well secured with either a leg back or leg strap with large bag. Empty your bag when it's about half full. You may notice some blood in the bag. This is normal after surgery and while the catheter is in place. Use mild soap (such as Dove or Dial) and water to wash the catheter and the head of your penis daily, or more frequently if needed. Return to your normal diet, we encourage good protein intake to promote healing. You may shower as normal. Please avoid tub baths or soaking until catheter removed and incisions well healed. Wearing sweat pants while you have the catheter is recommended, they will be more comfortable. Follow-up Your follow up appointments for having your catheter removed, and follow up with your physician should already be scheduled. If you have any questions regarding this, please contact our office. Your final pathology report will be discussed at your physician follow-up appointment. Call [facility] at [phone] right away if you have any of the following: Chest pain or trouble breathing (call 911 or go to the hospital) Fever of 101F or higher, uncontrolled vomiting Heavy bleeding, clots, or bright red blood from the catheter Catheter that falls out or stops draining Foul-smelling discharge from your catheter Redness, swelling, warmth, or increased pain at your incision site Drainage, pus, or bleeding from your incision Pending Studies at Discharge: Yes Studies:: pathology Stand-Alone Forms: My [facility], Opioid Pain Management, Smoking Cessation Medications and DC Order Prescriptions: New oxycodone-acetaminophen [Percocet] 5-325 mg tablet 1 tab PO TID PRN (Reason: pain) Qty: 14 RF: 0 docusate sodium [Colace] 100 mg capsule 100 mg PO BID Qty: 60 RF: 0 Continued (DME) OneTouch Ultra Blue Test Strip Strip See Rx Instructions .ROUTE .MEDSUPPLY Qty: 100 RF: 0 aspirin [Aspirin Low Dose] 81 mg Tablet,Delayed Release (Dr/Ec) 81 mg PO PM RF: 0 cyanocobalamin (vitamin B-12) [Vitamin B-12] 500 mcg Tablet 500 mcg PO QAM RF: 0 cholecalciferol (vitamin D3) [Vitamin D3] 25 mcg (1,000 unit) Tablet,Chewable 25 mcg PO BID RF: 0 atorvastatin 40 mg tablet 40 mg PO PM RF: 0 pioglitazone [Actos] 45 mg tablet 45 mg PO PM RF: 0 levothyroxine [Synthroid] 75 mcg tablet 75 mcg PO QAM RF: 0 ferrous gluconate 324 mg (37.5 mg iron) tablet 324 mg PO QAM RF: 0 No Action ciprofloxacin HCl [Cipro] 500 mg tablet 500 mg PO BID RF: 0 metformin 500 mg tablet extended release 24 hr 1,000 mg PO BIDM RF: 0 Discharge Orders: Discharge Order (Routine); Ordered 09/08/20 Ordered By: Loretta Segundo/Other Patient Handouts: Radical Prostatectomy Dc, Discharge Instructions Caring for ... Admission Data Admit Date/Time: 09/07/20 12:22 Attending Provider: Tyrell Ahuja Admit Provider: Tyrell Ahuja Primary Care Provider: Renato Jerez Other Interventions: Discharge Summary Assessment (RN) Last Done: 09/08/20 14:50 Coding Level of Care Code D/C Day Management <30 mins Diagnoses Prostate cancer C61
== END 2020-09-08 17:00 | disposition home or self-care (01) ==
LOC: ASU 05:50 → INTOOBSV 12:22 → 3N 12:22